=== PATIENT | female | born 1970 | race African-American/Black ===

== ENCOUNTER 2020-03-21 04:40 | Day surgery (SDC) | payer OTHER ==
[2020-03-20 12:11] VITALS: BMI 32.9
--- NOTE | 2020-03-21 07:09 | HP ---
History & Physical Update - History History: No Change - Physical Physical: No Change - Assessment Assessment: No Change - Plan Plan: No Change (H&P reviwed , no changes , for hysteroscopy D&C ,resection of submucos myoma)
[2020-03-21] MEDS ORDERED: MIDAZOLAM HCL 2 MG/2 ML SINGLE DOSE VIAL ONE (12:30)
[2020-03-21] MEDS ORDERED: SUCCINYLCHOLINE CHLORIDE 200 MG/10 ML SYRINGE ONE (12:30)
[2020-03-21] MEDS ORDERED: LIDOCAINE HCL/PF 2% SDV 5ML VIAL ONE (12:30)
[2020-03-21] MEDS ORDERED: KETOROLAC TROMETHAMINE 30 MG/1 ML VIAL ONE ×2 (12:30→13:15)
[2020-03-21] MEDS ORDERED: LIDOCAINE HCL 2% JELLY (5 ML/TUBE) ONE (12:30)
[2020-03-21] MEDS ORDERED: DEXAMETHASONE SOD PHOSPHATE 4 MG/1 ML VIAL ONE (12:30)
[2020-03-21] MEDS ORDERED: PROPOFOL 20 ML ONE ×2 (12:31)
[2020-03-21] MEDS ORDERED: IBUPROFEN 800 MG/8 ML IJ IVPB PRN (13:51)
[2020-03-21] MEDS ORDERED: oxyCODONE HCL 5 MG TABLET PO PRN (13:51)
[2020-03-21] MEDS ORDERED: ONDANSETRON 4 MG/2 ML VIAL IVPUSH PRN (13:51)
[2020-03-21] MEDS ORDERED: IBUPROFEN 600 MG TABLET (FP) PO PRN (13:51)
--- NOTE | 2020-03-21 13:52 | OP ---
Operative Note - Note: Operative Date: 03/21/20 Pre-Operative Diagnosis: postmenopausal vaginal bleeding , EM polyp Operation: hysteroscopy , D&C Findings: cx clean, uterus retroverted , prominant , , em atrophic , small floopy polyp, Post-Operative Diagnosis: Same as Pre-op Surgeon: Robert Alberto Anesthesia: General Specimens Removed: EMC Estimated Blood Loss (mls): 25 Drains & Tubes with Location: none Blood Volume Replaced (mls): 0 Operative Report Dictated: Yes
[2020-03-21] MEDS ORDERED: ELECTROLYTE-148 SOLN 1,000 ML IV SCH (14:00)
[2020-03-21 15:26] VITALS: TEMP 97.8
[2020-03-21 17:37] VITALS: BP 125/78; PULSE 60
--- NOTE | 2020-03-23 11:26 | PATH ---
Surgical Pathology Report Patient Name: CARLY FERREIRA [facility]. Rec. #: [id number] /Age/Gender: 1970 (Age: 49) / F Account: [id number] Location: [facility] SURGICAL Taken: 03/21/2020 Received: 03/22/2020 Reported: 03/23/2020 Physicians: Robert Alberto M.D. Specimen(s) Received ENDOMETRIAL CURETTINGS Clinical History Fibroid uterus, postmenopausal bleeding Final Diagnosis ENDOMETRIAL CURETTINGS: SCANTY FRAGMENTS OF UNREMARKABLE CERVICAL SQUAMOUS MUCOSA MIXED WITH MUCUS. NO ENDOMETRIAL TISSUE PRESENT. Electronically Signed Kristie Cohn M.D. Gross Description Received in formalin labeled "endometrial curettings," is a 1.0 x 0.8 x 0.2 cm aggregate of olivares soft tissue fragments. The formalin is filtered and the specimen is entirely submitted in one cassette. /03/22/2020 saudi/03/22/2020
--- NOTE | 2020-03-28 12:38 | OP ---
DATE OF OPERATION: 03/21/2020 PREOPERATIVE DIAGNOSIS: Postmenopausal bleeding. POSTOPERATIVE DIAGNOSIS: Postmenopausal bleeding. PROCEDURE: Hysteroscopy, dilation and curettage. SURGEON: Robert Alberto MD ANESTHESIA: General. ESTIMATED BLOOD LOSS: 20 mL. FINDINGS: Endometrial atrophy. No polyp or submucosal myoma was seen. DESCRIPTION OF PROCEDURE: Patient was taken to operating room. Under adequate general anesthesia in the dorsal lithotomy position, examination under anesthesia revealed external genitalia to be normal. Vagina was normal. Cervix was clean, no gross lesion. Uterus was slightly prominent, anteverted. Adnexa: No masses were palpable. Then with weighted speculum in the vagina, anterior lip of the cervix was grasped with single-tooth tenaculum. The uterine cavity was sounded to 8 cm. Cervix was gradually dilated with Hegar dilator, and then hysteroscope was introduced. Visualization of the endocervical canal appeared to be normal. Endometrium appeared to be atrophic. No polyp or fibroid was seen, and both cornua regions were identified. No abnormality was noted. Hysteroscope was withdrawn and the endometrial curetting was done. Patient tolerated the procedure well, left the OR in good condition. ROBERT ALBERTO M.D. [id number]
== END 2020-03-21 17:00 | disposition home or self-care (01) ==
LOC: JASU-SURG 04:40
PROVIDERS: ATTEND Obstetrics & Gynecology
PROC: 0UDB7ZX Extraction of Endometrium, Via Natural or Artificial Opening, Diagnostic (ICD-10-PCS; principal; 2020-03-21 11:00)
PROC: 0UJD8ZZ Inspection of Uterus and Cervix, Via Natural or Artificial Opening Endoscopic (ICD-10-PCS; 2020-03-21 11:00)
DX: N95.0 Postmenopausal bleeding (principal)
CPT/HCPCS: 81025; 88305-TC; 94760